=== PATIENT | male | born 1940 | race Caucasian/White ===

== ENCOUNTER 2016-08-11 07:07 | Outpatient (CLI) | payer MEDICARE, OTHER | END 2016-08-11 07:08 | LOC: LAB 07:07 | PROVIDERS: ATTEND Family Medicine | DX: E11.9 Type 2 diabetes mellitus without complications (principal) | CPT/HCPCS: 36415; 83036 ==

== ENCOUNTER 2016-08-22 09:30 | Outpatient (CLI) | payer MEDICARE, OTHER | END 2016-08-22 09:33 | LOC: OUT 09:30 | PROVIDERS: ATTEND Family Medicine | CPT/HCPCS: G0270; G0463 ==

== ENCOUNTER 2016-09-28 07:10 | Outpatient (CLI) | payer MEDICARE, OTHER | END 2016-09-28 07:11 | LOC: LAB 07:10 | PROVIDERS: ATTEND Family Medicine | DX: E11.9 Type 2 diabetes mellitus without complications (principal) | CPT/HCPCS: 36415; 83036 ==

== ENCOUNTER 2017-03-03 07:03 | Outpatient (CLI) | payer MEDICARE, OTHER ==
[2017-03-03 07:53] LABS: eGFR (African) > 60; eGFR (Non-African) > 60
== END 2017-03-03 07:04 ==
LOC: LAB 07:03
PROVIDERS: ATTEND Family Medicine
DX: I10 Essential (primary) hypertension (principal); E11.9 Type 2 diabetes mellitus without complications; E78.00 Pure hypercholesterolemia, unspecified
CPT/HCPCS: 36415; 80053; 80061; 83036

== ENCOUNTER → 2017-04-21 | Outpatient (CLI) | payer MEDICARE, OTHER | LOC: LAB 07:01 | PROVIDERS: ATTEND Specialist | DX: Z79.899 Other long term (current) drug therapy (principal); G25.0 Essential tremor | CPT/HCPCS: 36415; 80061 ==

== ENCOUNTER 2017-08-30 07:05 | Outpatient (CLI) | payer MEDICARE, OTHER ==
[2017-08-30 07:57] LABS: eGFR (African) > 60; eGFR (Non-African) > 60
== END 2017-08-30 07:06 ==
LOC: LAB 07:05
PROVIDERS: ATTEND Family Medicine
DX: E11.9 Type 2 diabetes mellitus without complications (principal); I10 Essential (primary) hypertension
CPT/HCPCS: 36415; 80053; 83036

== ENCOUNTER 2017-09-07 10:00 | Outpatient (CLI) | payer MEDICARE, OTHER | END 2017-09-07 10:02 | LOC: OUT 10:00 | PROVIDERS: ATTEND Colon & Rectal Surgery | DX: K60.2 Anal fissure, unspecified (principal); K59.4 Anal spasm | CPT/HCPCS: G0463 ==

== ENCOUNTER 2018-01-10 11:52 | Outpatient (CLI) | payer MEDICARE, OTHER ==
[2018-01-10 12:39] LABS: BASOPHILS % 1.2 (0.0-1.5); MEAN CORPUSCULAR HEMOGLOBIN 30.6 pg (28.0-34.0); MEAN CORPUSCULAR VOLUME 91.5 fl (80.0-100.0); MONOCYTES % 7.5 % (0.0-11.0)
--- NOTE | 2018-01-10 12:46 | Diagnostic Imaging Report ---
MEDHAT CROWLEY [facility] [address] [facility] [address] [address] Report Submission Date: Jan 10, 2018 12:43:24 PM CDT Patient Study Name: ARGELIA SIMMS Date: Jan 10, 2018 12:05:38 PM CDT Modality Type: DX Gender: M Description: CHEST : 42 Institution: [facility] Physician: MEDHAT CROWLEY PA and lateral chest History: Dyspnea PA and lateral chest dated January 10, 2018 is without prior radiographs for comparison. The cardiomediastinal silhouette is normal. Pulmonary vascularity is normal. Lungs are clear. Findings consistent with mild diffuse idiopathic skeletal hyperostosis are noted of the thoracic spine. Impression: No active disease. 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 Electronically signed on Jan 10, 2018 12:43:24 PM CDT by: Lashawn GARZON
--- NOTE | 2018-01-10 12:47 | Diagnostic Imaging Report ---
MEDHAT CROWLEY [facility] [address] [facility].[address] [address] Report Submission Date: Jan 10, 2018 12:42:54 PM CDT Patient Study Name: ARGELIA SIMMS Date: Jan 10, 2018 12:17:04 PM CDT Modality Type: DX Gender: M Description: LOWER EXTREMITY : 42 Institution: [facility] Physician: MEDHAT CROWLEY Examination: Plain film right foot History: RIGHT MID FOOT PAIN WHILE WALKING TODAY (Hx) Findings: 3 views of the right foot demonstrates articular degenerative changes of. No fracture or dislocation. Calcaneal spurs. No soft tissue swelling. No joint effusion. Impression: Articular degenerative changes. No acute osseous process. Electronically signed on Jan 10, 2018 12:42:54 PM CDT by: Yoseph GARZON
--- NOTE | 2018-01-10 12:47 | Diagnostic Imaging Report ---
MEDHAT CROWLEY [facility] [address] [facility].[address] [address] Report Submission Date: Jan 10, 2018 12:38:58 PM CDT Patient Study Name: ARGELIA SIMMS Date: Jan 10, 2018 12:11:22 PM CDT Modality Type: DX Gender: M Description: PELVIS : 42 Institution: [facility] Physician: MEDHAT CROWLEY Left hip History: Pain AP and frog leg lateral projections of the left hip were obtained. Mild bony hypertrophy findings along the greater trochanter. No additional osseous abnormalities are noted. Impression: Mild bony hypertrophic findings along the greater trochanter. Otherwise, no osseous abnormality. Electronically signed on Jan 10, 2018 12:38:58 PM CDT by: Lashawn GARZON
[2018-01-10 13:08] LABS: eGFR (African) > 60; eGFR (Non-African) > 60
== END 2018-01-10 11:53 ==
LOC: RT 11:52
PROVIDERS: ATTEND Family Medicine
DX: R00.0 Tachycardia, unspecified (principal); R06.09 Other forms of dyspnea; R53.82 Chronic fatigue, unspecified; M25.552 Pain in left hip; M79.671 Pain in right foot; I10 Essential (primary) hypertension
CPT/HCPCS: 36415; 71046; 73630; 80053; 84443; 85025

== ENCOUNTER 2018-01-15 07:51 | Outpatient (CLI) | payer MEDICARE, OTHER ==
[2018-01-15 08:05] LABS: BASOPHILS % 0.7 (0.0-1.5); EOSINOPHILS % 1.2 % (0.0-6.8); MEAN CORPUSCULAR VOLUME 91.4 fl (80.0-100.0); NEUTROPHILS # 7.4 # k/uL (1.4-7.7)
== END 2018-01-15 10:42 ==
LOC: LAB 07:51
PROVIDERS: ATTEND Family Medicine
DX: D75.1 Secondary polycythemia (principal)
CPT/HCPCS: 36415; 85025

== ENCOUNTER 2018-01-26 09:39 | Outpatient (CLI) | payer MEDICARE, OTHER ==
[2018-01-26 17:01] LABS: ADENOVIRUS F 40/41 Not Detected (Not Detected); ASTROVIRUS Not Detected (Not Detected); C. DIFFICILE (TOXIN A/B) Not Detected (Not Detected); CRYPTOSPORIDIUM Not Detected (Not Detected); CYCLOSPORA CAYETANENSIS Not Detected (Not Detected); ENTAMOEBA HISTOLYTICA Not Detected (Not Detected); GIARDIA LAMBLIA Not Detected (Not Detected); ROTAVIRUS A Not Detected (Not Detected); SAPOVIRUS Not Detected (Not Detected); VIBRIO CHOLERAE Not Detected (Not Detected)
== END 2018-01-26 09:40 ==
LOC: LAB 09:39
PROVIDERS: ATTEND Physician Assistant
DX: R19.7 Diarrhea, unspecified (principal)
CPT/HCPCS: 87507

== ENCOUNTER 2018-03-01 12:30 | Outpatient (CLI) | payer MEDICARE, OTHER | END 2018-03-01 12:32 | LOC: LAB 12:30 | PROVIDERS: ATTEND Family Medicine | DX: E11.9 Type 2 diabetes mellitus without complications (principal); E03.9 Hypothyroidism, unspecified | CPT/HCPCS: 36415; 83036; 84443 ==

== ENCOUNTER 2018-06-12 07:37 | Outpatient (CLI) | payer MEDICARE, OTHER ==
[2018-06-12 08:30] LABS: eGFR (Non-African) > 60
== END 2018-06-12 07:40 ==
LOC: LAB 07:37
PROVIDERS: ATTEND Family Medicine
DX: I10 Essential (primary) hypertension (principal); E11.9 Type 2 diabetes mellitus without complications; E78.00 Pure hypercholesterolemia, unspecified
CPT/HCPCS: 36415; 80053; 80061; 83036

== ENCOUNTER 2018-06-18 12:13 | Outpatient (CLI) | payer MEDICARE, OTHER ==
[2018-06-18 12:36] LABS: BASOPHILS % 0.4 (0.0-1.5); MONOCYTES % 7.5 % (0.0-11.0); NEUTROPHILS # 6.1 # k/uL (1.4-7.7)
[2018-06-18 12:46] LABS: eGFR (Non-African) > 60
== END 2018-06-18 20:18 | disposition home or self-care (01) ==
LOC: LAB 12:13
PROVIDERS: ATTEND Family Medicine
DX: I10 Essential (primary) hypertension (principal)
CPT/HCPCS: 36415; 80053; 85025

== ENCOUNTER 2018-07-02 09:32 | Outpatient (CLI) | payer MEDICARE, OTHER ==
[2018-07-02 10:18] LABS: eGFR (Non-African) 57
== END 2018-07-02 09:33 ==
LOC: LAB 09:32
PROVIDERS: ATTEND Family Medicine
DX: Z79.899 Other long term (current) drug therapy (principal); Z51.81 Encounter for therapeutic drug level monitoring
CPT/HCPCS: 36415; 80048

== ENCOUNTER 2018-07-30 11:23 | Outpatient (CLI) | payer MEDICARE, OTHER ==
[2018-07-30] MEDS ORDERED: ALBUTEROL SULFATE 2.5 MG/3 ML AMPUL.NEB NEB ONE (11:36)
== END 2018-07-30 11:25 ==
LOC: RT 11:23
PROVIDERS: ATTEND Family Medicine
DX: R06.09 Other forms of dyspnea (principal)
CPT/HCPCS: 94060

== ENCOUNTER 2018-12-11 07:08 | Outpatient (CLI) | payer MEDICARE, OTHER ==
[2018-12-25 14:42] LABS: A1C 6.2 % (-5.7); eGFR (Non-African) > 60
== END 2018-12-11 18:13 | disposition home or self-care (01) ==
LOC: LAB 07:08
PROVIDERS: ATTEND Family Medicine
DX: E11.9 Type 2 diabetes mellitus without complications (principal); I10 Essential (primary) hypertension
CPT/HCPCS: 36415; 80053; 83036

== ENCOUNTER 2018-12-17 11:07 | Outpatient (CLI) | payer MEDICARE, OTHER | END 2018-12-17 11:12 | disposition home or self-care (01) | LOC: LAB 11:07 | PROVIDERS: ATTEND Family Medicine | DX: E29.1 Testicular hypofunction (principal); M79.10 Myalgia, unspecified site | CPT/HCPCS: 36415; 84402; 85651 ==

== ENCOUNTER 2019-01-07 09:32 | Outpatient (CLI) | payer MEDICARE, OTHER ==
[2019-01-07 09:45] LABS: BASOPHILS % 0.4 % (0.0-1.5); NEUTROPHILS # 8.7 # k/uL (1.4-7.7)
[2019-01-07 10:02] LABS: eGFR (Non-African) > 60
== END 2019-01-07 09:34 ==
LOC: LAB 09:32
PROVIDERS: ATTEND Family Medicine
DX: M79.10 Myalgia, unspecified site (principal); Z79.899 Other long term (current) drug therapy
CPT/HCPCS: 36415; 80053; 85025; 86038; 86431

== ENCOUNTER 2019-03-01 11:00 | Outpatient (CLI) | payer MEDICARE, OTHER | END 2019-03-01 11:03 | LOC: LAB 11:00 | PROVIDERS: ATTEND Family Medicine | DX: E11.9 Type 2 diabetes mellitus without complications (principal) | CPT/HCPCS: 83036 ==